=== PATIENT | male | born 2000 | race Hispanic/Latino ===

== ENCOUNTER 2021-11-17 14:27 | Emergency (ER) | payer MEDICAID ==
[~2021-11-17] VITALS: Ht 167.6 cm; Wt 140.0 kg
[2021-11-17 14:38] VITALS: BP 156/84
[2021-11-17 15:00] VITALS: BP 149/78
[2021-11-17 15:27] LABS: HEMATOCRIT 50.8 % (39.0-50.0); HEMOGLOBIN 16.5 g/dl (14.0-18.0); IMMATURE GRANULOCYTES 0.1 % (0.0-5.0); MEAN CELL VOLUME 89.3 fL CALC (80.0-100.0); MEAN CORPUSCULAR HGB CONC 32.5 g/dL CAL (32.0-36.0); NEUT# 3.96 thou/uL (1.82-7.42); RED BLOOD COUNT 5.69 mill/uL (4.70-6.10); RED CELL DISTRI WIDTH 12.4 % (11.5-15.5)
[2021-11-17 15:32] LABS: ALBUMIN 4.9 g/dL (3.2-5.0); ALKALINE PHOSPHATASE 83 u/l (38-126); ANION GAP 13 (6-22 (CALC)); BUN 9 mg/dL (9-20); BUN/CREATININE RATIO 11 (12-20 (CALC)); CARBON DIOXIDE 29 mmol/l (22-30); CHLORIDE 102 mmol/l (95-108); CREATININE 0.9 mg/dL (0.7-1.3); GFR > 60 ML/MIN (>=60 (CALC)); GFR FOR AFR.AMER. > 60 ML/MIN (>=60 (CALC)); LIPASE 79 u/l (23-300); POTASSIUM 3.3 mmol/l (3.5-5.1); SGOT/AST 33 u/l (17-59); SODIUM 141 mmol/l (137-146)
[2021-11-17 15:56] LABS: URINE BILIRUBIN - DIPSTICK NEGATIVE (NEGATIVE); URINE BLOOD DIPSTICK NEGATIVE (NEGATIVE); URINE COLOR YELLOW; URINE GLUCOSE - DIPSTICK NEGATIVE (NEGATIVE); URINE KETONE NEGATIVE (NEGATIVE); URINE LEUK ESTERASE NEGATIVE (NEGATIVE); URINE PROTEIN - DIPSTICK NEGATIVE (NEG-TRACE); URINE SPECIFIC GRAVITY 1.015; URINE UROBILINOGEN - DIPSTICK 0.2 E.U./dL (0.2)
[2021-11-17 15:59] LABS: URINE NITRITE - DIPSTICK NEGATIVE (Negative)
[2021-11-17 17:15] VITALS: BP 149/78
[2021-11-17 17:48] LABS: CPK 132 u/l (52-200)
[2021-11-17 17:49] LABS: ETHYL ALCOHOL 0 mg/dl (0-30)
== END 2021-11-17 17:30 | disposition home or self-care (01) ==
LOC: ED 14:27
DX: R07.89 Other chest pain (principal); E87.6 Hypokalemia; F12.10 Cannabis abuse, uncomplicated; Z20.822 Contact with and (suspected) exposure to COVID-19

== ENCOUNTER 2021-11-28 14:17 | Emergency (ER) | payer OTHER, MEDICAID ==
[~2021-11-28] VITALS: Ht 167.6 cm; Wt 68.1 kg
[2021-11-28 14:40] VITALS: BP 133/77
[2021-11-28 14:47] VITALS: BP 142/83
[2021-11-28 15:00] VITALS: BP 131/78
[2021-11-28 15:30] VITALS: BP 135/88
[2021-11-28 15:45] VITALS: BP 127/81
[2021-11-28] MEDS ORDERED: NAPROXEN500 MG PO (16:01)
== END 2021-11-28 16:08 | disposition home or self-care (01) | DRG 556 ==
LOC: ED 14:17
DX: M25.512 Pain in left shoulder (principal); S10.91XA Abrasion of unspecified part of neck, initial encounter; V49.40XA Driver injured in collision with unspecified motor vehicles in traffic accident, initial encounter

== ENCOUNTER 2022-10-18 09:33 | Emergency (ER) | payer MEDICAID ==
[~2022-10-18] VITALS: Ht 167.6 cm; Wt 80.1 kg
[~2022-10-18 09:33] MED LIST: NAPROXEN500 MG PO
[2022-10-18 10:52] VITALS: BP 127/80
== END 2022-10-18 10:53 | disposition left against medical advice (07) ==
LOC: ED 09:33
DX: R07.89 Other chest pain (principal); R20.2 Paresthesia of skin; Z53.29 Procedure and treatment not carried out because of patient's decision for other reasons

== ENCOUNTER 2024-10-03 18:26 | Emergency (ER) | payer SELFPAY ==
[~2024-10-03] VITALS: Ht 162.6 cm; Wt 68.0 kg
[2024-10-03 18:36] VITALS: BP 137/81
[2024-10-03 18:45] VITALS: BP 126/73
[2024-10-03] MEDS ORDERED: Diph, Acellular Pertussis, Tet 0.5 ML/VIAL (Tdap) SDV IM ONE (18:45)
[2024-10-03 19:23] VITALS: BP 137/81
== END 2024-10-03 19:23 | disposition left against medical advice (07) | DRG 159 ==
LOC: ED 18:26
PROC: 0HQ1XZZ Repair Face Skin, External Approach (ICD-10-PCS; principal; 2024-10-03)
DX: S01.511A Laceration without foreign body of lip, initial encounter (principal); Y04.2XXA Assault by strike against or bumped into by another person, initial encounter; Z53.29 Procedure and treatment not carried out because of patient's decision for other reasons
CPT/HCPCS: 90715